=== PATIENT | female | born 1990 | race Caucasian/White ===

== ENCOUNTER 2018-05-26 12:14 | Emergency (ER) | payer SELFPAY ==
[2018-05-26 12:27] VITALS: BP 138/81
[2018-05-26 13:13] LABS: APPEARANCE,URINE SLIGHTLY-CLOUDY; BILIRUBIN,URINE NEGATIVE (NEGATIVE); COLOR,URINE YELLOW; GLUCOSE, URINE NEGATIVE (NEGATIVE); KETONES,URINE NEGATIVE (NEGATIVE); LEUKOCYTE ESTERASE,URINE NEGATIVE (NEGATIVE); NITRITE,URINE NEGATIVE (NEGATIVE); PROTEIN,URINE 30 mg/dL (NEGATIVE); URINE SPECIFIC GRAVITY 1.027
--- NOTE | 2018-05-26 13:40 | ER Document Report ---
ED General - General Chief Complaint: Vaginal Bleeding Stated Complaint: VAGINAL BLEEDING, DIZZY Time Seen by Provider: 05/26/18 13:28 TRAVEL OUTSIDE OF THE [place] IN LAST 30 DAYS: No - HPI Patient complains to provider of: Vaginal bleeding Notes: Patient coming in for evaluation of vaginal bleeding. PatientStates that she has not had a period in the last 2 months however started bleeding last night going through approximately 1 tampon hour. Patient denies any other symptoms states that she mostly came to the ER because her boyfriend was concerned. Patient denies any fever chills nausea vomiting weakness fatigue diarrhea syncope. - Related Data Allergies/Adverse Reactions: No Known Allergies Allergy (Verified 12/14/15 02:42) Past Medical History - General Last Menstrual Period: February - Social History Smoking Status: Current Every Day Smoker Chew tobacco use (# tins/day): No Frequency of alcohol use: None Drug Abuse: None Family History: Reviewed & Not Pertinent Patient has suicidal ideation: No Patient has homicidal ideation: No - Past Medical History Cardiac Medical History: Denies: Hx Hypertension Renal/ Medical History: Denies: Hx Peritoneal Dialysis Past Surgical History: Reports: Hx Tonsillectomy - Immunizations Hx Diphtheria, Pertussis, Tetanus Vaccination: Yes Review of Systems - Review of Systems Constitutional: No symptoms reported EENT: No symptoms reported Cardiovascular: No symptoms reported Respiratory: No symptoms reported Gastrointestinal: No symptoms reported Genitourinary: No symptoms reported Female Genitourinary: Vaginal bleeding Musculoskeletal: No symptoms reported Skin: No symptoms reported Hematologic/Lymphatic: No symptoms reported Neurological/Psychological: No symptoms reported -: Yes All other systems reviewed and negative Physical Exam - Vital signs Vitals: Temp Pulse Resp BP Pulse Ox 99.6 F 88 16 138/81 H 98 05/26/18 12:26 05/26/18 12:26 05/26/18 12:26 05/26/18 12:26 05/26/18 12:26 Interpretation: Normal - General General appearance: Appears well, Alert - HEENT Head: Normocephalic, Atraumatic Eyes: Normal Pupils: PERRL - Respiratory Respiratory status: No respiratory distress Chest status: Nontender Breath sounds: Normal Chest palpation: Normal - Cardiovascular Rhythm: Regular Heart sounds: Normal auscultation Murmur: No - Abdominal Inspection: Normal Distension: No distension Bowel sounds: Normal Tenderness: Nontender Organomegaly: No organomegaly - Back Back: Normal, Nontender - Extremities General upper extremity: Normal inspection, Nontender, Normal color, Normal ROM , Normal temperature General lower extremity: Normal inspection, Nontender, Normal color, Normal ROM , Normal temperature, Normal weight bearing. No: Sierra's sign - Neurological Neuro grossly intact: Yes Cognition: Normal Orientation: AAOx4 Mateusz Coma Scale Eye Opening: Spontaneous [place] Coma Scale Verbal: Oriented Mateusz Coma Scale Motor: Obeys Commands [place] Coma Scale Total: 15 Speech: Normal Motor strength normal: LUE, RUE, LLE, RLE Sensory: Normal - Psychological Associated symptoms: Normal affect, Normal mood - Skin Skin Temperature: Warm Skin Moisture: Dry Skin Color: Normal Course - Re-evaluation Re-evalutation: 05/26/18 21:06 Patient declined any blood work. Urinalysis shows that she is not no other signs of significant pathology. Patient states that she will follow-up with her [employer] patient will be discharged home - Vital Signs Vital signs: Temp Pulse Resp BP Pulse Ox 99.6 F 88 16 138/81 H 98 05/26/18 12:26 05/26/18 12:26 05/26/18 12:26 05/26/18 12:26 05/26/18 12:26 - Laboratory Laboratory results interpreted by me: 05/26/18 12:41 Urine Protein 30 H Urine Blood MODERATE H Urine Urobilinogen 2.0 H Discharge - Discharge Clinical Impression: Dysfunctional uterine bleeding Condition: Good Disposition: HOME, SELF-CARE Instructions: Dysfunctional Uterine Bleeding ([facility]), Ob-Post Closer Doctors Additional Instructions: Your labs and vitals signs today show no abnormality. Please follow up with your obgyn or the obgyn listed. Return to the ER for any other concerns. Forms: Return to Work
== END 2018-05-26 13:42 | disposition home or self-care (01) ==
LOC: ER 12:14
DX: N93.8 Other specified abnormal uterine and vaginal bleeding (principal); R42 Dizziness and giddiness; F17.200 Nicotine dependence, unspecified, uncomplicated
CPT/HCPCS: 81001; 81025; 99284